=== PATIENT | female | born 1985 | race Caucasian/White ===

== ENCOUNTER 2016-12-17 06:10 | Inpatient (IN) | payer MEDICARE, OTHER ==
--- NOTE | ~2016-12-17 | A ---
[facility] Nutrition Therapy DATE: 12/17/16 Patient: COREY HENNESSY Physician: SEGUN Address: [address] Room/Bed: [address], Zip: [place] [address] Admit Date: 12/17/16 Date of : 86 Height: 5 4 Weight: 127 58 NUTRITIONAL ASSESSMENT: REASON: NPO IN ICU ASSESSMENT, PT INTUBATED PT IS 31 Y.O. FEMALE ADMITTED FOR RESPIRATORY FAILURE, ARDS, PNA PMH: NO PMH IN [facility]. PER CHART: IDDM Anthropometrics: 5'6" (IN CHART), WT: 153# (70 KG) (IN CHART), BMI: 24.7, 118%IBW -PER BEDSIDE WEIGHT: 128# (58 KG)-PER RD OBSERVATION, PT LOOKS "HEAVIER" THAN 128# Labs: GLU: 397, CA+:7.4, ALB: 2.3, A1c: 12.8 (IN CHART) (POOR DM MANAGEMENT) Meds: NACL, NOVOLOG, PROTONIX I/O & Bowel function: NOT AVAILABLE AT THIS TIME Skin Integrity: NO KNOWN SKIN ISSUES Estimated Nutrition Needs: 5408-4134 KCAL (25-30 KCAL/KG BW) 84-105 G PRO (1.2-1.5 G PRO/KG BW) FLUIDS CONSISTENT W/KCAL NEEDS Assessment: CHART REVIEWED AND EVENTS NOTED. PT SEEN FOR NPO IN ICU ASSESSMENT. PT CURRENTLY INTUBATED AT TIME OF VISIT. PT TRANSFERRED TO ICU THIS AM 12/17/16. PLANS IN PLACE FOR DHT PLACEMENT LATER TODAY. NO FAMILY IN ROOM AT TIME OF VISIT. PT NOT APPROPRIATE FOR DIET EDUCATION AT THIS TIME. RD TO FOLLOW. SEE RECOMMENDATIONS BELOW. Dx: INADEQUATE PROTEIN-ENERGY INTAKE R/T DX, CURRENT CONDITION AEB NPO STATUS, PT INTUBATED. Intervention: 1. NPO Monitoring, Evaluation and Goals: 1. ENTERAL NUTRITION; PROVIDE ~80-100% ESTIMATED NUTRIENT NEEDS W/NO SIGNS OF INTOLERANCE 2. PO INTAKE; ADVANCE DIET TOLERATED W/NO C/O N/V/D (PO>50%) 3. LABS; WNL: GLU MONITOR: -WEIGHTS -PLANS FOR SUPPORT -LABS [facility] Nutrition Therapy DATE: 12/17/16 Patient: COREY HENNESSY Physician: SEGUN Address: [facility] [address] Room/Bed: [address], Zip: [place] [address] Admit Date: 12/17/16 Date of : 86 Height: 5 4 Weight: 127 58 Recommendations: 1. ONCE MEDICALLY FEASIBLE AND PT EXTUBATED, ADVANCE DIET TO CC 2. IF PT REMAINS INTUBATED FOR >24 HOURS, RECOMMEND TO BEGIN ALTERNATIVE NUTRITION SUPPORT OF GLUCERNA 1.5 @ 20 ML/HR, ADVANCE 10 ML q 4 HOURS TO GOAL RATE OF 50 ML/HR -PROVIDES 1800 KCAL, 99 G PRO, 912 ML FREE H20 ADD FREE H20 FLUSHES PER MD 3. OPTIMIZE PT'S BLOOD SUGAR CONTROL REGIMEN RD WILL F/U PER PROTOCOL PT IS SEVERELY COMPROMISED Respectfully, NICHOLAS GTZ MS, RD, LD Food and Nutritional Services [facility] cc: client file
--- NOTE | ~2016-12-17 | CR72 ---
[facility] A Service of [facility] / [facility] RADIOLOGY TEXT RESULTS PATIENT: COREY HENNESSY LOCATION: [facility] : 86 UNIT #: [id number] AGE: [address]: Isis Brown MD SEX: F ORDER DR: [id number] [place], [place] [address] [id number] I MR#: [id number] Acc #: [id number] NAME: COREY HENNESSY : 1985 SEX: F STUDY DATE/TIME: 12/20/2016 16:10 UNIT: [facility] ROOM: [facility] STUDY DESCRIPTION: CR Chest Single View Portable Attending Physician: Isis Brown M.D. Ordering Physician: Chevy Arteaga M.D. Primary Care Physician: Primary Care Physician No MEDICAL IMAGING REPORT This report is preliminary unless electronic signature is present EXAM Portable chest HISTORY Right chest tube in place, evaluate pneumothorax. COMPARISON 12/20/2016 FINDINGS AP portable view of the chest demonstrates a large-bore chest tube directed towards the right lung apex. Low lung volumes with mild pulmonary vascular congestion but no definitive pneumothorax. Well demarcated right hemidiaphragm and right heart border does suggest the presence of some pleural air but a discrete pleural reflection is not seen. Small amount of subcutaneous emphysema right lateral thorax. Heart and mediastinum unremarkable. Right neck approach catheter extends probably to the level of the right atrium. Correlate for appropriate positioning, typically this should require pullback of the catheter of about 4 cm. No effusions. Dictated by... Warren Hinojosa M.D. THIS IS AN ELECTRONICALLY VERIFIED REPORT Warren Hinojosa M.D. at 12/21/2016 6:35 PM PAYAL/elise TD: 12/20/2016 21:23 JOB #: [id number] MEDICAL IMAGING REPORT [facility] A Service of [facility] / [facility] RADIOLOGY TEXT RESULTS PATIENT: COREY HENNESSY LOCATION: [facility] : 86 UNIT #: [id number] AGE: [address]: Isis Brown MD SEX: F ORDER DR: Page 1 of 1 COPY
--- NOTE | ~2016-12-17 | FU ---
[facility] Nutrition Therapy DATE: 12/20/16 Patient: COREY HENNESSY Physician: SEGUN Address: [address] Room/Bed: [address], Zip: [place] [address] Admit Date: 12/17/16 Date of : 86 Height: 5 4 Weight: 160 73 NUTRITION MONITORING/FOLLOW-UP: Reason: PT SEEN FOR FOLLOW-UP/ENTERAL NUTRITION SUPPORT DX: ARDS, RESP FAILURE, PNA Anthropometrics: 5'4", WT: 160# (73 KG), BMI: 27.5 Labs: GLU: 373, BUN: 33, ALB: 2.2 (12/18/16), NA+:147 Meds: LEVEMIR, SOLU-MEDROL, PHENERGAN, NOVOLOG, PROTONIX, NACL I&O's: 7685/8437, 1 BM NOTED Skin: NO KNOWN SKIN ISSUES Estimated Nutrition Needs: 3643-2074 KCAL 84-105 G PRO Assessment: CHART REVIEWED AND EVENTS NOTED. PT SEEN FOR ENTERAL NUTRITION SUPPORT FOLLOW-UP. PT EXTUBATED CURRENTLY ON NASAL CANNULA RECEIVING ENTERAL NUTRITION SUPPORT OF GLUCERNA 1.5 @ 50 ML/HR. PER RN AND CHART, PT TOLERATING EN. PER PUMP HISTORY, PT RECEIVING ~88% ESTIMATED NEEDS PAST [address] FOR SUPERVISOR BRAIDING EVAL TODAY. RD SPOKE TO PT. PT REPORTS NO C/O N/V/D. THIS RD ENCOURAGED SLOW GRADUAL PO INTAKE ONCE SUPERVISOR BRAIDING DEEMS PT APPROPRIATE FOR DIET ADVANCEMENT. PT REPORTED NO DIET QUESTIONS. RD TO FOLLOW. SEE RECOMMENDATIONS BELOW. -EN PROVIDES 1800 KCAL, 99 G PRO, 912 ML FREE H20 Dx: INADEQUATE PROTEIN-ENERGY INTAKE R/T DX, CURRENT CONDITION AEB NPO STATUS, PT INTUBATED.-RESOLVED INADEQUATE PROTEIN-ENERGY INTAKE R/T DX, CURRENT CONDITION AEB PT RECEIVING ALTERNATIVE NUTRITION SUPPORT, SUPERVISOR BRAIDING EVAL?. Intervention: 1. ENTERAL NUTRITION SUPPORT Monitoring, Evaluation and Goals: GOALS MET 1. ENTERAL NUTRITION; PROVIDE ~80-100% ESTIMATED NUTRIENT NEEDS 2. ORAL INTAKE; CONSUME DIET PER SUPERVISOR BRAIDING W/NO C/O N/V/D (PO>50%) 3. LABS; WNL: GLU, NA+, K+ 4. GI; PROMOTE REGULAR GI FUNCTION MONITOR: [facility] DATE: 12/20/16 Patient: COREY HENNESSY Physician: SEGUN Address: [address] Room/Bed: [address], Zip: [place] [address] Admit Date: 12/17/16 Date of : 86 Height: 5 4 Weight: 160 73 -TF RATE/RESIDUALS -WEIGHTS -SUPERVISOR BRAIDING EVAL? -LABS Recommendations: 1. CONTINUE CURRENT ENTERAL NUTRITION SUPPORT OF GLUCERNA 1.5 @ 50 ML/HR -ADEQUATE FOR PT'S CURRENT ESTIMATED NEEDS CONTINUE FREE H20 FLUSHES PER MD 2. ONCE MEDICALLY FEASIBLE, ADVANCE DIET PER SUPERVISOR BRAIDING + CC DIET -ENCOURAGE SLOW GRADUAL ORAL INTAKE ONCE DIET ADVANCES 3. ORDER GLUCERNA SHAKES BID IF PO INTAKE <50% 4. PLEASE OBTAIN UPDATED A1c TO BETTER ASSESS DM MANAGEMENT RD WILL F/U PER PROTOCOL PT IS MILD/MODERATELY COMPROMISED Respectfully, NICHOLAS GTZ MS, RD, LD Food and Nutritional Services [facility] cc: client file
--- NOTE | ~2016-12-17 | CR72 ---
[facility] A Service of [facility] & [facility] RADIOLOGY TEXT RESULTS PATIENT: COREY HENNESSY LOCATION: [address] : [birth year] UNIT #: [id number] AGE: [address]: Isis Brown MD SEX: F ORDER DR: [id number] [facility] [address] [facility]. [place], [place] [address] [id number] I MR#: [id number] Acc #: [id number] NAME: COREY HENNESSY : 1985 SEX: F STUDY DATE/TIME: 12/17/2016926 UNIT: [facility] ROOM: [facility] STUDY DESCRIPTION: CR Chest Single View Portable Attending Physician: Isis Brown M.D. Ordering Physician: Cielo Morrow M.D. Primary Care Physician: No Primary Care Physician MEDICAL IMAGING REPORT This report is preliminary unless electronic signature is present EXAM Chest, portable, 12/17/2016, 0927 hours. CLINICAL HISTORY 31-year-old woman with ARDS on ventilator with shortness of air. Dobbhoff tube placement today. COMPARISON None FINDINGS Portable upright chest demonstrates an endotracheal tube with tip 3.7 cm above the ernesto. Heart size is normal. There is diffuse airspace change throughout both lungs without pleural fluid or pneumothorax. No Dobbhoff tube is seen. IMPRESSION Endotracheal tube tip terminates 3.7 cm above the ernesto. There is diffuse bilateral airspace change. There is no adenopathy, pleural effusion, or pneumothorax. NOTE Dobbhoff tube is seen. Dictated by... Sudha Thibodeaux M.D. THIS IS AN ELECTRONICALLY VERIFIED REPORT Sudha Thibodeaux M.D. at 12/17/2016 2:28 PM SMM/toribiow [facility] A Service of [facility] & [facility] RADIOLOGY TEXT RESULTS PATIENT: COREY HENNESSY LOCATION: [address] : 86 UNIT #: [id number] AGE: [address]: Isis Brown MD SEX: F ORDER DR: TD: 12/17/2016 12:08 JOB #: [id number] MEDICAL IMAGING REPORT Page 1 of 1 COPY
--- NOTE | ~2016-12-17 | DS ---
Unit #: [id number] #: [id number] Patient: COREY HENNESSY [id number] [facility]. [place], [place] [address] [id number] I MR#: [id number] NAME: COREY HENNESSY ROOM: 227 Age: 31 Sex: F Admission Date: 12/17/2016 : 1985 Discharge Date: Attending Physician: Isis Brown M.D. Primary Care Physician: No Primary Care Physician DISCHARGE SUMMARY ADDENDUM The patient had an EGD by Dr. Hudson, which was completely normal examination up to the third part of . The patient was also assisted by long term care social worker for her wanting to move up here to be closer to family for more social support. The patient cannot move up here, as her grandmother cannot help her sell her estate at this time, and long term care social worker cannot help move her drug courts up here to [place]. Therefore, grandmother will be taking her back to [place], [place], and the patient will move up here on her own time. At this time, discharge condition is stable. Discharge to home where she can follow up with her primary care physician in 1-2 weeks with repeat chest x-ray. An outpatient physical therapy prescription was given, since the patient was hospitalized here for about a week, and she was intubated for 4 days during her stay here. The patient is up and ambulating the hallway. She tells me she has no trouble ambulating. Physical therapy has discharged her and felt that she was safe to be discharged home. Discharge medicines are the same as previous. NOTE: This dictation took 45 minutes, including coordinating care, patient education. Dictated by... Guadalupe Portillo PA-C for Shira Almeida/valeri TD: 12/25/2016 09:26 JOB #: [id number] DISCHARGE SUMMARY Page 1 of 1 X X DISCHARGE SUMMARY
--- NOTE | ~2016-12-17 | OR ---
Unit #: [id number] #: [id number] Patient: COREY HENNESSY [id number] [place], [place] [address] [id number] I MR#: [id number] NAME: COREY HENNESSY ROOM: [facility] Date of Procedure: 12/17/2016 Admission Date: 12/17/2016 Surgeon: Azeb Mcgovern M.D. : 1985 Attending Physician: Isis Brown M.D. PROCEDURE OPERATIVE NOTE PROCEDURE PERFORMED Right internal jugular central venous catheter placement. INDICATION Shock. PREPROCEDURE DIAGNOSIS Shock. POSTPROCEDURE DIAGNOSIS Shock. DESCRIPTION OF PROCEDURE Procedure was done as an emergent procedure. Patient was placed in appropriate position. The right side of the neck was prepped with ChloraPrep, and with all aseptic technique, a triple-lumen central venous catheter was placed in the right internal jugular vein. Patient tolerated the procedure very well. A postprocedure chest x-ray was ordered. Her line was secured with two interrupted sutures in place. The guidewire was removed in total. Dictated by... Shira Prakash TD: 12/18/2016 17:21 JOB #: [id number] PROCEDURE OPERATIVE NOTE Page 1 of 1 X Azeb Mcgovern MD X PROCEDURE OPERATIVE NOTE
--- NOTE | ~2016-12-17 | CR72 ---
[facility] A Service of [facility] / [facility] RADIOLOGY TEXT RESULTS PATIENT: COREY HENNESSY LOCATION: [id number] : 86 UNIT #: [id number] AGE: [address]: Isis Brown MD SEX: F ORDER DR: [id number] [facility] [address] [facility]. [place], [place] [address] [id number] I MR#: [id number] Acc #: [id number] NAME: COREY HENNESSY : 1985 SEX: F STUDY DATE/TIME: 12/19/2016 03:12 UNIT: [facility] ROOM: [facility] STUDY DESCRIPTION: CR Chest Single View Portable Attending Physician: Isis Brown M.D. Ordering Physician: Chevy Arteaga M.D. Primary Care Physician: No Primary Care Physician MEDICAL IMAGING REPORT This report is preliminary unless electronic signature is present EXAM Portable chest 12/19/2016 at 0312 hours INDICATION Respiratory failure. Ventilator patient. Pneumonia. FINDINGS AP portable chest is compared with 12/18/2016. Tubes and lines are unchanged and well-positioned. Heart size stable. Diffuse bilateral infiltrates persist, but they are improved suggesting improving edema. No pneumothorax. Dictated by... Gary Alegre Jr., M.D. THIS IS AN ELECTRONICALLY VERIFIED REPORT Gary Alegre Jr., M.D. at 12/19/2016 9:25 PM JOSE ALFREDO/bia TD: 12/19/2016 09:50 JOB #: [id number] MEDICAL IMAGING REPORT Page 1 of 1 COPY
--- NOTE | ~2016-12-17 | FU ---
[facility] Nutrition Therapy DATE: 12/24/16 Patient: COREY HENNESSY Physician: SEGUN Address: [address] Room/Bed: [address] [place] [address], Zip: [place] [address] Admit Date: 12/17/16 Date of : 86 Height: 5 4 Weight: 168 76.5 NUTRITION MONITORING/FOLLOW-UP: Reason: PT SEEN FOR FOLLOW-UP DX: ARDS Anthropometrics: 5'4", WT: 153# (PER PT) (70 KG), BMI: 26.3 -WEIGHTS HAVE RANGED ~127-168# SINCE ADMIT Labs: GLU: 311, BUN: 28 Meds: LEVEMIR, PREDNISONE, PROTONIX, PHENERGAN, NOVOLOG I&O's: 1190/1603, 3 BMs NOTED Skin: NO KNOWN SKIN ISSUES Estimated Nutrition Needs: 5868-7890 KCAL 84-105 G PRO Assessment: CHART REVIEWED AND EVENTS NOTED. PT SEEN FOR FOLLOW-UP. PT REPORTS APPETITE SLOWLY IMPROVING, NOTING N/V SLOWLY SUBSIDING BUT ADDS SHE FEELS NAUSEOUS OCCASIONALLY. PT REPORTED TOLERATING SOLID FOODY YESTERDAY. OF NOTE, PT CURRENTLY NPO 2' EGD PROCEDURE TODAY. PT WAS RECEIVING CC DIET PRIOR. THIS RD ENCOURAGED SLOW GRADUAL PO INTAKE + SUPPLEMENT (ONCE DIET ADVANCES), PT AGREED TO GLUCERNA SHAKES BID, RD WILL ORDER. RD ALSO PROVIDED WRITTEN AND VERBAL CC + GASTROPARESIS DIET EDUCATION. PT VERBALIZED UNDERSTANDING OF THE TOPIC, PT REPORTED NO DIET QUESTIONS AT THIS TIME. RD TO FOLLOW. SEE RECOMMENDATIONS BELOW. (OF NOTE, PER MD NOTES, ?GASTROPARESIS) Dx: INADEQUATE PROTEIN-ENERGY INTAKE R/T DX, CURRENT CONDITION, AEB NEED FOR ALTERNATIVE NUTRITION SUPPORT, ?MANAGER OF DIGITAL EVAL.-RESOLVED (PT NO LONGER ON EN). INADEQUATE PROTEIN-ENERGY INTAKE R/T DX, CURRENT CONDITION AEB PT REPORT ABOVE. Intervention: 1. NPO Monitoring, Evaluation and Goals: GOALS NOT MET 1. ORAL INTAKE; CONSUME >50% OF MEALS W/NO C/O N/V/D (PO>50%) 2. LABS; WNL 3. GI; PROMOTE REGULAR GI FUNCTION MONITOR: [facility] Nutrition Therapy DATE: 12/24/16 Patient: COREY HENNESSY Physician: SEGUN Address: [address] Room/Bed: [address] [place] [address], Zip: [place] [address] Admit Date: 12/17/16 Date of : 86 Height: 5 4 Weight: 168 76.5 -DIET ADVANCEMENT -PO INTAKE/APPETITE -SUPPLEMENT INTAKE -EDUCATION NEEDS Recommendations: 1. ONCE MEDICALLY FEASIBLE, ADVANCE DIET TO CC + 6 SMALL MEALS 2' PT CURRENT CONDITION 2. ORDER VANILLA GLUCERNA SHAKES BID ONCE DIET ADVANCES 3. APPRECIATE FAMILY AND STAFF TO ENCOURAGE ADEQUATE KCAL AN PROTEIN INTAKE 4. PLEASE OBTAIN A1c TO BETTER ASSESS DM MANAGEMENT RD WILL F/U PER PROTOCOL PT IS MILD/MODERATELY COMPROMISED Respectfully, NICHOLAS GTZ MS, RD, LD Food and Nutritional Services [facility] cc: client file
--- NOTE | ~2016-12-17 | CR72 ---
[facility] A Service of [facility] & [facility] RADIOLOGY TEXT RESULTS PATIENT: COREY HENNESSY LOCATION: [address] : 86 UNIT #: [id number] AGE: [address]: Isis Brown MD SEX: F ORDER DR: [id number] [facility] [address] [facility]. [place], [place] [address] [id number] I MR#: [id number] Acc #: [id number] NAME: COREY HENNESSY : 1985 SEX: F STUDY DATE/TIME: 11/17/2016 UNIT: [facility] ROOM: [facility] STUDY DESCRIPTION: CR Chest Single View Portable Attending Physician: Isis Brown M.D. Ordering Physician: Cielo Morrow M.D. Primary Care Physician: Primary Care Physician No MEDICAL IMAGING REPORT This report is preliminary unless electronic signature is present EXAM Portable chest 12/18 at 05:02 INDICATIONS Respiratory failure. Ventilator patient. FINDINGS AP portable chest compared with 12/17/2016. ET tube and right IJ line are in good position. Right chest tube in place. No pneumothorax on either side of the chest. Diffuse bilateral infiltrates are stable in the short interval. Dictated by... Gary Alegre Jr., M.D. THIS IS AN ELECTRONICALLY VERIFIED REPORT Gary Alegre Jr., M.D. at 12/18/2016 10:40 PM JOSE ALFREDO/astrid TD: 12/18/2016 07:23 JOB #: [id number] MEDICAL IMAGING REPORT Page 1 of 1 COPY
--- NOTE | ~2016-12-17 | CO ---
Unit #: [id number] #: [id number] Patient: COREY HENNESSY [id number] [place], [place] [address] [id number] I MR#: [id number] NAME: COREY HENNESSY ROOM: 227 Age: 31 Sex: F Admission Date: 12/17/2016 : 1985 Attending Physician: Isis Brown M.D. Consultation Date: 12/23/2016 CONSULTATION REPORT REASON FOR CONSULTATION Nausea, vomiting, and possible gastroparesis. HISTORY OF PRESENT ILLNESS Ms. Hennessy is 31-year-old white female lives at home by herself. She has type 1 diabetes from the age of 15 and says she is managing herself. The patient also smokes a pack of cigarette daily. She apparently came with acute respiratory failure and initially she was on the ventilator and has since then been extubated. She mentions repeated nausea and vomiting off and on. Initial diagnosis was community acquired pneumonia. She also mentions some upper abdominal discomfort. There was no history of any dysphagia or weight loss. PAST MEDICAL HISTORY She has no significant past medical history except for diabetes. History of hepatitis C and is about to see a doctor for starting treatment. PAST SURGICAL HISTORY No previous surgeries. ALLERGIES The patient has no known drug allergies. CURRENT MEDICATIONS Hospital available, but none from home. REVIEW OF SYSTEMS Detailed review of organ systems does not reveal any recent weight loss. No history of fever, chills, or rigors. No history of headache, seizures, chest pain, or syncope. No history of cough, expectoration, or hemoptysis. No history of dysuria, hematuria, or pyuria. No history of focal seizures or extremity weakness. Rest of the review of organ systems is unremarkable. PHYSICAL EXAMINATION GENERAL: She is awake, alert, oriented, and appears comfortable. VITAL SIGNS: Stable with a temperature of 98.4, pulse is 103 per minute and regular, respiratory rate is 18, blood pressure is 111/ 51. She weighs 168 pounds, which is close to her baseline weight. HEENT: She has mild pallor. There being no icterus, lymphadenopathy, or peripheral edema. CARDIOVASCULAR: Reveals normal heart sounds. No murmurs on auscultation. LUNGS: Reveal normal breath sounds. Good air entry. ABDOMEN: Soft and nontender. There being no area of localized rigidity, Unit #: [id number] #: [id number] Patient: GERHARD,COREY rebound, guarding, or tenderness. Liver and spleen are not palpable. Bowel sounds normal. DIAGNOSTIC STUDIES LABORATORY RESULTS: Shows a hemoglobin of 9.0 with normochromic normocytic red cell indices. White count is 11,000 with left shift. INR is 1.0. Serum chemistry shows a BUN and creatinine of 33 and 0.9. Albumin is 2.2. LFTs are otherwise normal. CLINICAL IMPRESSION The patient with type 1 diabetes, acute respiratory failure from community acquired pneumonia with intermittent nausea and vomiting. The latter may be related to uncontrolled diabetes or from gastroparesis. Diagnostic upper endoscopy to look for any intrinsic disease of gastric outflow tract is needed first. Any further recommendations will be made thereafter. The pros and cons of procedure, potential risks, and complications were discussed with the patient and she was reassured. Thank you very much for asking me to see this pleasant woman. I appreciate the consult. Dictated by... Shira Marie/lina TD: 12/24/2016 02:02 JOB #: [id number] CONSULTATION REPORT Page 1 of 1 X Choa Hudson MD X CONSULTATION REPORT
--- NOTE | ~2016-12-17 | HP ---
Unit #: [id number] #: [id number] Patient: COREY HENNESSY [id number] [address] [facility]. [place], [place] [address] [id number] I MR#: [id number] NAME: COREY HENNESSY [facility]OM: [facility] Age: 31 Sex: F Admission Date: 12/17/2016 : 1985 Attending Physician: Isis Brown M.D. Primary Care Physician: No Primary Care Physician HISTORY AND PHYSICAL REASON FOR ADMISSION Acute respiratory failure. HISTORY OF PRESENT ILLNESS The patient is a 31-year-old female to whom we do not have any verified records from [facility]. We are awaiting them at the time of this dictation. After review and discussion with my associate and through the night, the patient was actually accepted as a transfer from [facility] secondary to acute respiratory failure. Apparently, she had been initially admitted secondary to vomiting, coughing, as well as, noted to have blood present in her sputum. She apparently was diagnosed with community-acquired pneumonia. Her O2 saturation started to decrease, was placed on a ventilator, and was noted to have "complete white out" of her lungs and was thus transferred to [facility] for further evaluation and worsening respiratory status. PAST MEDICAL HISTORY Unknown. PAST SURGICAL HISTORY Not known. HOME MEDICATIONS Not known. ALLERGIES Not known. REVIEW OF SYSTEMS Limited secondary to patient currently being on ventilator. PHYSICAL EXAMINATION VITAL SIGNS: Current vitals: Temperature 98.4, pulse 111, respiratory rate 16, blood pressure 105/64. GENERAL APPEARANCE: The patient is a 31 year old, currently on vent support, no acute distress, sedated. HEENT: Head: Atraumatic. Ears: Tympanic membranes do not reveal erythema or injection. NECK: Supple. CARDIOVASCULAR: S1, S2 without murmur. RESPIRATORY: Diminished. GASTROINTESTINAL/ABDOMEN: Nontender, nondistended. SKIN: Reveals numerous tattoos present upper and lower extremities. Numerous bruises are noted over hands and feet. Unit #: [id number] #: [id number] Patient: COREY HENNESSY EXTREMITIES: Lower extremities: No lower extremity edema is noted. DIAGNOSTIC STUDIES LABORATORY: Labs at outside facility were reviewed. Flu swab is negative. Creatinine 0.7 on December 17, 2016 noted at 0055. White count 8.2 on December 14, 2016. Hemoglobin 13.7 on December 14, 2016. Hemoglobin A1c 12.3% drawn at outside facility. Urine culture does not reveal any bacterial growth from outside facility. INITIAL ADMISSION DIAGNOSES 1. Acute respiratory failure. 2. Acute respiratory distress syndrome. 3. Diabetes, poorly controlled. 4. Upper and lower extremity bruising, questionable etiology. PLAN 1. Admission intensive care unit placement. 2. Etl Analyst Developer consult. 3. Laboratory studies: Check HIV, urine tox, hepatitis panel. 4. Further hospital course to follow. 5. Patient has no current family members present at bedside. Will await family members as well as prior records from outside facility for planning further disposition. Dictated by Shira Almeida/clari TD: 12/17/2016 11:05 JOB #: [id number] HISTORY AND PHYSICAL Page 1 of 1 X Isis Brown MD X HISTORY AND PHYSICAL
--- NOTE | ~2016-12-17 | CR72 ---
[facility] A Service of [facility] & [facility] RADIOLOGY TEXT RESULTS PATIENT: COREY HENNESSY LOCATION: [address] : [birth year] UNIT #: [id number] AGE: [address]: Isis Brown MD SEX: F ORDER DR: [id number] [facility] [address] [facility]. [place], [place] [address] [id number] I MR#: [id number] Acc #: [id number] NAME: COREY HENNESSY : 1985 SEX: F STUDY DATE/TIME: 12/17/2016 18:24 UNIT: [facility] ROOM: [facility] STUDY DESCRIPTION: CR Chest Single View Portable Attending Physician: Isis Brown M.D. Ordering Physician: Azeb Mcgovern M.D. Primary Care Physician: Primary Care Physician No MEDICAL IMAGING REPORT This report is preliminary unless electronic signature is present EXAM Portable chest. HISTORY Chest tube placement. COMPARISON Portable chest 12/17/2016 at 1202 hours. FINDINGS Portable view of the chest demonstrates a single right-sided chest tube directed towards the right lung apex. No significant pleural air identified. No visible pneumothorax. Flexible feeding tube, appears in satisfactory position. There is a right neck approach central line probably extending into the right atrium. Continued diffuse alveolar infiltrates most likely representing diffuse pulmonary edema, probably noncardiogenic as the heart size is within normal limits. Diffuse pneumonia considered less likely. Dictated by... Warren Hinojosa M.D. THIS IS AN ELECTRONICALLY VERIFIED REPORT Warren Hinojosa M.D. at 12/18/2016 10:59 PM PAYAL/max TD: 12/17/2016 23:26 JOB #: [id number] MEDICAL IMAGING REPORT Page 1 of 1 COPY
--- NOTE | ~2016-12-17 | CR72 ---
[facility] A Service of [facility] RADIOLOGY TEXT RESULTS PATIENT: COREY HENNESSY LOCATION: [address] : [birth year] UNIT #: [id number] AGE: [address]: Isis Brown MD SEX: F ORDER DR: [id number] [facility] [address] [place], [place] [address] [id number] I MR#: [id number] Acc #: [id number] NAME: COREY HENNESSY : 1985 SEX: F STUDY DATE/TIME: 12/17/2016 10:53 UNIT: [facility] ROOM: [facility] STUDY DESCRIPTION: CR Chest Single View Portable Attending Physician: Isis Brown M.D. Ordering Physician: Azeb Mcgovern M.D. Primary Care Physician: Primary Care Physician No MEDICAL IMAGING REPORT This report is preliminary unless electronic signature is present EXAM Portable chest INDICATIONS Central line placement followup infiltrates, 12/17 COMPARISON: Earlier the same day. FINDINGS This portable view of the chest shows a new right side central venous catheter with its tip in the right atrium. There is a new right-sided pneumothorax that is at least 15%. I have already discussed this with the patient's nurse and she was aware of the findings. There are dense bilateral infiltrates that are stable. There is partial collapse of the right upper lobe. The enteric tube has its tip at least in the stomach. I believe the endotracheal tube is still present with its tip above the ernesto. Dictated by... Dillan Walters M.D. THIS IS AN ELECTRONICALLY VERIFIED REPORT Dillan Walters M.D. at 12/17/2016 4:10 PM GURDEEP/astrid TD: 12/17/2016 11:51 JOB #: [id number] MEDICAL IMAGING REPORT Page 1 of 1 COPY
--- NOTE | ~2016-12-17 | CR72 ---
[facility] A Service of [facility] & [facility] RADIOLOGY TEXT RESULTS PATIENT: COREY HENNESSY LOCATION: [address] : [birth year] UNIT #: [id number] AGE: [address]: Isis Brown MD SEX: F ORDER DR: [id number] [facility] [address] [facility] [place] [facility]. [place], [place] [address] [id number] I MR#: [id number] Acc #: [id number] NAME: COREY HENNESSY : 1985 SEX: F STUDY DATE/TIME: 12/20/2016 5:46 UNIT: [facility] ROOM: [facility] STUDY DESCRIPTION: CR Chest Single View Portable Attending Physician: Isis Brown M.D. Ordering Physician: Chevy Arteaga M.D. Primary Care Physician: Primary Care Physician No MEDICAL IMAGING REPORT This report is preliminary unless electronic signature is present EXAM AP portable chest 12/20/2016 HISTORY Respiratory failure. Chest tube. Follow up cardiopulmonary status. TECHNIQUE AP portable chest x-ray. FINDINGS The examination shows no change since yesterday following interval extubation. Right chest tube remains in place, and there is no visible pneumothorax. Right IJ central line and feeding tube remain in good position. Mildly increased interstitial markings throughout both lungs, stable. No airspace consolidation or visible pleural effusion. IMPRESSION Stable chest x-ray following extubation since yesterday. Remaining support devices in good position. Dictated by... Farooq Hillman M.D. THIS IS AN ELECTRONICALLY VERIFIED REPORT Farooq Hillman M.D. at 12/20/2016 1:32 PM OSORIOW/kevin TD: 12/20/2016 07:18 JOB #: [id number] MEDICAL IMAGING REPORT [facility] A Service of [facility] / [facility] RADIOLOGY TEXT RESULTS PATIENT: COREY HENNESSY LOCATION: [address] : [birth year] UNIT #: [id number] AGE: [address]: Isis Brown MD SEX: F ORDER DR: Page 1 of 1 COPY
--- NOTE | ~2016-12-17 | OR ---
Unit #: [id number] #: [id number] Patient: COREY HENNESSY [id number] [address] [address] [id number] I MR#: [id number] NAME: COREY HENNESSY ROOM: [facility] Date of Procedure: 12/17/2016 Admission Date: 12/17/2016 Surgeon: Azeb Mcgovern M.D. : 1985 Attending Physician: Isis Brown M.D. PROCEDURE OPERATIVE NOTE PROCEDURE PERFORMED Right-sided chest tube placement. INDICATION Pneumothorax. PREPROCEDURE DIAGNOSIS Pneumothorax. POSTPROCEDURE DIAGNOSIS Pneumothorax. DESCRIPTION OF PROCEDURE After placing patient in the proper position, the right side of the chest was prepped with ChloraPrep, and with all aseptic technique, a 4 cm incision was made in the right fifth intercostal space. With blunt dissection, the right side pleural space was entered, and a gush of air came out. We inserted a #20-Divehi chest tube with a trocar. The chest tube was secured with one suture and a sterile dressing was applied. Patient tolerated the procedure very well. No complications happened. A postprocedure chest x-ray was ordered. Dictated by... Shira Prakash TD: 12/18/2016 17:29 JOB #: [id number] PROCEDURE OPERATIVE NOTE Page 1 of 1 X Azeb Mcgovern MD X PROCEDURE OPERATIVE NOTE
--- NOTE | ~2016-12-17 | CR7 ---
[facility] A Service of [facility] RADIOLOGY TEXT RESULTS PATIENT: COREY HENNESSY LOCATION: [address] [address] : [birth year] UNIT #: [id number] AGE: [address]: Isis Brown MD SEX: F ORDER DR: [id number] [facility] [address] [facility]. [place], [place] [address] [id number] I MR#: [id number] Acc #: [id number] NAME: COREY HENNESSY : 1985 SEX: F STUDY DATE/TIME: 12/17/2016 0935 UNIT: [facility] ROOM: [facility] STUDY DESCRIPTION: CR Abdomen Single AP View Attending Physician: Isis Brown M.D. Ordering Physician: Cielo Morrow M.D. Primary Care Physician: No Primary Care Physician MEDICAL IMAGING REPORT This report is preliminary unless electronic signature is present EXAM Abdomen one-view, 12/17/2016, 0935 hours. CLINICAL HISTORY ARDS on ventilator with shortness of air, Dobbhoff tube placement today. Abdominal pain today. COMPARISON Chest film 12/17/2016. No prior abdominal film. FINDINGS Single supine view of the abdomen demonstrates a Dobbhoff tube with tip directed rightward and cephalad to the right of the L1-2 disc space level, likely at or near the pylorus. Bowel gas pattern is unremarkable. IMPRESSION The Dobbhoff tube tip projects to the right of the L1-L2 disc space level with tip directed rightward and cephalad, most likely at or near the pylorus. Dictated by... Sudha Thibodeaux M.D. THIS IS AN ELECTRONICALLY VERIFIED REPORT Sudha Thibodeaux M.D. at 12/18/2016 10:40 AM PAUL/leslye TD: 12/17/2016 16:06 JOB #: [id number] MEDICAL IMAGING REPORT [facility] A Service of [facility] RADIOLOGY TEXT RESULTS PATIENT: COREY HENNESSY LOCATION: [address] [place] [address] : [birth year] UNIT #: [id number] AGE: [address]: Isis Brown MD SEX: F ORDER DR: Page 1 of 1 COPY
--- NOTE | ~2016-12-17 | DS ---
Unit #: [id number] #: [id number] Patient: COREY HENNESSY [id number] [address] [place], [place] [address] [id number] I MR#: [id number] NAME: COREY HENNESSY ROOM: 227 Age: 31 Sex: F Admission Date: 12/17/2016 : 1985 Discharge Date: 12/24/2016 Attending Physician: Isis Brown M.D. Primary Care Physician: No Primary Care Physician DISCHARGE SUMMARY DISCHARGE DIAGNOSES 1. Acute hypoxic respiratory failure. She presented to us intubated and sedated. 2. Acute respiratory distress syndrome due to pneumonia. 3. Septic shock, present on admission due to pneumonia. 4. Bilateral pneumonia, treating for gram-negative rods with concern in patient who was ventilated. 5. Uncontrolled type 2 diabetes. 6. Nausea, vomiting. Gastrointestinal for esophagogastroduodenoscopy. 7. History of hepatitis C. 8. History of polysubstance abuse. 9. Social disruption. 10. History of anxiety and depression. CONSULTANTS 1. Dr. Mcgovern and Dr. Mary Alice Arteaga of pulmonary. 2. Dr. Hudson of gastroenterology. 3. Dr. Messina of psychiatry. PROCEDURES The patient had a chest tube placed by Dr. Mcgovern on 12/17/16. DIAGNOSTIC STUDIES IMAGING: The patient had initial chest x-ray on admission, 12/17/16, after Dobbhoff was placed. She was intubated, and the Dobbhoff tube was seen. The patient had daily chest x-rays, December 18, December 19, December 20 while she was intubated, and a final chest x-ray on December 22 with impression of removal of right-sided chest tube. No visible pneumothorax. Low lung volumes with mild bilateral interstitial opacities unchanged. The patient did have bilateral lower extremity Doppler. No evidence of either right or left lower extremity DVT or superficial venous thrombosis. LABS ON DAY OF DISCHARGE: BMP - glucose 311, BUN 28, creatinine 0.8, sodium 138, potassium 3.7, chloride 106, CO2 24, calcium 8.5, phosphorous 2.7, magnesium 2, total protein 5.4, albumin 2.2, total bilirubin 0.9, AST 25, ALT 18, alkaline phosphatase 52. The patient's hemoglobin A1C is still pending. CBC with WBC of 12.3, RBC 3.13, hemoglobin 9.2, hematocrit 27.1, MCV 86.8, MCH 29.6, MCHC 34.1, RDW 13.4, platelets 288, MPV 8.2. MICROBIOLOGY: The patient's blood culture had no growth. Sputum had 1+ yeast species but no growth of normal nela. Unit #: [id number] #: [id number] Patient: [facility] The patient is a 31-year-old female with history of IV drug use, type 1 diabetes and generalized anxiety and depression who was transferred from [facility] for persistent respiratory distress with no improvement and aspiration pneumonia. She was hospitalized at that facility for 4 days. Due to her persistent respiratory distress requiring persistent intubation and ventilation, she was transferred to [facility] for higher level of care. Upon arrival here, she was seen in consultation with Dr. Balderas pulmonary for her acute hypoxic respiratory failure with acute respiratory distress syndrome, as well as bilateral pneumonia. She was treated with IV steroids, continued with IV antibiotics. After a chest x-ray and acute abdominal series were obtained upon arrival, it was seen that the patient had a pneumothorax and a right-sided chest tube was needed. This was performed by Dr. Mcgovern of pulmonary. As the patient was continuing to get Solu-Medrol for her acute respiratory distress, as well as IV antibiotics for her pneumonia, her symptoms started to improve. She was extubated on the after 4 days of hospitalization here. She has done well after being extubated. For her pneumothorax, it was treated with a chest tube placed by pulmonary, and eventually it was taken out. The latest chest x-ray on December 22 showed resolution of the pneumothorax. At this time the patient is on room air and is oxygenating well, but she complains of nausea and vomiting. She does have type 1 diabetes and is uncontrolled. Therefore, Dr. Hudson of gastroenterology was consulted, and he is planning to do an EGD to rule out any outlet obstruction cause. The patient is from [place], [place], 2 [place]2 hours away. She has no social support there and tells me that both her parents and daughter have about 1-2 years ago. She has a home there but has no social support. She does have her grandmother here in [place], as well as some aunts here in [place]. She is wishing to be transferred up here. dietary worker is assisting the patient with any social needs. For her history of drug usage, as well as anxiety and depression, Dr. Messina was consulted, and we will wait for any recommendations by Dr. Messina. At this time the patient is stable. If she is felt by gastroenterology to have no further concern, she may be discharged home with her grandmother here in [place]. Prescriptions for home management of insulin, as well as Celexa, will be given to the patient. dietary worker will follow up her for any other needs. DISCHARGE CONDITION/DISPOSITION (1) to home. ACTIVITIES No restrictions with ambulating every day as tolerated. DISCHARGE MEDICINES 1. Celexa 20 mg orally daily. 2. Levemir 18 units subcutaneously b.i.d. 3. NovoLog low dose sliding scale insulin prior to meals and at bedtime. 4. Levaquin 750 mg orally for the next 5 days. Unit #: [id number] #: [id number] Patient: COREY HENNESSY Dictated by... Guadalupe Portillo PA-C for Shira Almeida/valeri TD: 12/25/2016 08:53 JOB #: [id number] DISCHARGE SUMMARY Page 1 of 1 X X DISCHARGE SUMMARY
--- NOTE | ~2016-12-17 | OR ---
Unit #: [id number] #: [id number] Patient: COREY HENNESSY [id number] [address] [place], [place] [address] [id number] I MR#: [id number] NAME: COREY HENNESSY ROOM: 227 Date of Procedure: 12/24/2016 Admission Date: 12/17/2016 Surgeon: Chao Hudson M.D. : 1985 Attending Physician: Isis Brown M.D. OPERATIVE REPORT ADDITIONAL ATTENDING PHYSICIAN Cielo Morrow M.D. PREOPERATIVE DIAGNOSES Nausea, vomiting, and possible gastroparesis. PROCEDURE PERFORMED Upper gastrointestinal endoscopy. POSTOPERATIVE DIAGNOSIS Completely normal examination up to third part of duodenum. RECOMMENDATIONS The patient will be discharged home from GI standpoint and will require followup on an outpatient basis. SEDATION USED MAC. DESCRIPTION OF PROCEDURE Following detailed explanation of potential risks and complications of an upper endoscopy, namely perforation, bleeding, and complication related to sedation, the patient was brought to GI lab and laid in the left lateral decubitus position. Lubricated tip of the Olympus video upper endoscope was passed through the bite block into the proximal esophagus under direct vision. The entire esophageal mucosa was examined and appeared normal. Z-line was nicely demarcated, there being no esophagitis or hiatus hernia. The scope was then advanced into the gastric cavity and the latter was insufflated. Mucosa of the fundus, body, and antrum was examined and appeared unremarkable. Pylorus was intubated with visualization of the normal duodenal bulb and second and third part of the duodenum. Upon withdrawal and retroflexion, incisura, cardia, and greater curve was examined and no additional findings were noted. The scope was then withdrawn in the distal esophagus. The entire esophageal mucosa was examined all the way up to pharynx and no additional findings were noted. The patient tolerated the procedure without any postprocedure complications. Dictated by... Chao Hudson M.D. Unit #: [id number] #: [id number] Patient: COREY HENNESSY CARISSA/lina TD: 12/24/2016 22:34 JOB #: [id number] OPERATIVE REPORT Page 1 of 1 X Chao Hudson MD OPERATIVE NOTE
--- NOTE | ~2016-12-17 | CR72 ---
[facility] A Service of [facility] & [facility] RADIOLOGY TEXT RESULTS PATIENT: COREY HENNESSY LOCATION: [place] [address] : [birth year] UNIT #: [id number] AGE: [address]: Isis Brown MD SEX: F ORDER DR: [id number] [facility] [address] [place], [place] [address] [id number] I MR#: [id number] Acc #: [id number] NAME: COREY HENNESSY : 1985 SEX: F STUDY DATE/TIME: 12/17/2016 12:02 UNIT: [facility] ROOM: [facility] STUDY DESCRIPTION: CR Chest Single View Portable Attending Physician: Isis Brown M.D. Ordering Physician: Azeb Mcgovern M.D. Primary Care Physician: No Primary Care Physician MEDICAL IMAGING REPORT This report is preliminary unless electronic signature is present EXAM Portable chest HISTORY Chest tube placement. FINDINGS This portable view of the chest is compared with one from 1.5 hours ago. The right chest tube has been added and the pneumothorax has resolved. Dense bilateral infiltrates are stable. Dictated by... Dillan Walters M.D. THIS IS AN ELECTRONICALLY VERIFIED REPORT Dillan Walters M.D. at 12/17/2016 4:10 PM GURDEEP/bia TD: 12/17/2016 14:20 JOB #: [id number] MEDICAL IMAGING REPORT Page 1 of 1 COPY
--- NOTE | ~2016-12-17 | US84 ---
[id number] [facility] [address] [place], [place] [address] [id number] I MR#: [id number] Acc #: [id number] NAME: COREY HENNESSY : 1985 SEX: F STUDY DATE/TIME: 12/18/2016 9:50 UNIT: [facility] ROOM: [facility] STUDY DESCRIPTION: US LE Veins Complete Nando Stdy Attending Physician: Isis Brown M.D. Ordering Physician: Isis Brown M.D. MEDICAL IMAGING REPORT This report is preliminary unless electronic signature is present EXAM Bilateral lower extremities venous Doppler HISTORY Shortness of air, patient on a ventilator. FINDINGS The right common femoral vein, femoral vein, popliteal vein, tibial veins demonstrate patency and compressibility. There is phasic and spontaneous flow with respiration and augmentation. Proximal and distal greater saphenous vein is patent and compressible. The left common femoral vein, femoral vein, popliteal vein, tibial veins demonstrate patency and compressibility. There is phasic and spontaneous flow with respiration and augmentation. Proximal and distal greater saphenous vein is patent and compressible. IMPRESSION No evidence of either right or left lower extremity deep or superficial venous thrombosis. Dictated by... Radha Hammer M.D. THIS IS AN ELECTRONICALLY VERIFIED REPORT Radha Hammer M.D. at 12/19/2016 3:49 PM FPN/pcl TD: 12/18/2016 16:02 JOB #: [id number] MEDICAL IMAGING REPORT Page 1 of 1 COPY
--- NOTE | ~2016-12-17 | CR63 ---
[facility] A Service of [facility] RADIOLOGY TEXT RESULTS PATIENT: COREY HENNESSY LOCATION: [facility] : [birth year] UNIT #: [id number] AGE: [address]: Isis Brown MD SEX: F ORDER DR: [id number] [facility] [address] [place], [place] [address] [id number] I MR#: [id number] Acc #: [id number] NAME: COREY HENNESSY : 1985 SEX: F STUDY DATE/TIME: 12/22/2016 12:59 UNIT: [facility] ROOM: [facility] STUDY DESCRIPTION: CR Chest 2 View Attending Physician: Isis Brown M.D. Ordering Physician: Isis Brown M.D. Primary Care Physician: No Primary Care Physician MEDICAL IMAGING REPORT This report is preliminary unless electronic signature is present EXAM Two-view chest, 12/22/2016 HISTORY A 31-year-old female with shortness of breath since 12/21/2016. Chest tube removal 12/21/2016. COMPARISON STUDIES 12/20/2016. FINDINGS Two views of the chest demonstrate interval removal of the right-sided chest tube. No visible pneumothorax. Low lung volumes with mild bilateral interstitial opacities are unchanged. Right IJ central venous catheter is again noted with tip projecting over the right atrium. Heart size and mediastinum are stable. IMPRESSION 1. Removal of right-sided chest tube. No visible pneumothorax. 2. Low lung volumes with mild bilateral interstitial opacities are unchanged. Dictated by... Alfonso Patrick M.D. THIS IS AN ELECTRONICALLY VERIFIED REPORT Alfonso Patrick M.D. at 12/23/2016 10:56 AM JEREMIAH/madeleine TD: 12/23/2016 09:20 JOB #: [id number] [facility] A Service of [facility] RADIOLOGY TEXT RESULTS PATIENT: COREY HENNESSY LOCATION: [facility] : [birth year] UNIT #: [id number] AGE: [address]: Isis Brown MD SEX: F ORDER DR: MEDICAL IMAGING REPORT Page 1 of 1 COPY
--- NOTE | ~2016-12-17 | CO ---
Unit #: [id number] #: [id number] Patient: COREY HENNESSY [id number] [address] [place], [place] [address] [id number] MR#: [id number] NAME: COREY HENNESSY ROOM: [facility] Age: 31 Sex: F Admission Date: 12/17/2016 : 1985 Attending Physician: Isis Brown M.D. Consultation Date: 12/17/2016 CONSULTATION REPORT REASON FOR CONSULTATION Respiratory failure. CHIEF COMPLAINT Shortness of breath. HISTORY OF PRESENT ILLNESS A 31-year-old female presented to an outside hospital about four days ago with a complaint of shortness of breath and was admitted with the impression of pneumonia, ARDS, and progressive respiratory failure. Patient did not improve. She was on 20 of PEEP and was in progressive respiratory failure. She was being treated with IV antibiotics and has been transferred for further care. I am seeing the patient at the bedside. She is currently sedated and intubated and is paralyzed. REVIEW OF SYSTEMS Unobtainable. FAMILY HISTORY Unobtainable. SOCIAL HISTORY Listed as positive for smoking. MEDICATIONS As per MAR and have been reviewed. ALLERGIES Reviewed. PHYSICAL EXAMINATION VITAL SIGNS: Currently, temperature is 99, pulse 110, respirations 20, and blood pressure is 86/50. NEUROLOGICAL: Sedated and intubated. CARDIOVASCULAR: S1 plus S2. RESPIRATORY: Bilateral air entry, bilateral mild rhonchi. GASTROINTESTINAL: Nontender and soft. Bowel sounds positive. EXTREMITIES: No edema. DIAGNOSTIC STUDIES LABORATORY: Pending. IMAGING: Pending. Chest x-ray showed bilateral infiltrates. Unit #: [id number] #: [id number] Patient: COREY HENNESSY ASSESSMENT 1. Acute hypoxic respiratory failure. 2. Severe acute respiratory distress syndrome. 3. Bilateral pneumonia. 4. History of chronic pain. 5. Shock. PLAN At this point, my plan is to continue ventilator support. Start patient on stress-dose steroids. Continue broad spectrum IV antibiotic, GI and DVT prophylaxis, 2D echo, troponin, and repeat blood gas. Will need CT chest and will need bronchoscopy once on minimal ventilator settings. Patient will be closely monitored. Please see orders for detailed plans. Thank you very much for this consultation. We will continue to monitor. Patient's prognosis is very poor. Dictated by... Shira Prakash TD: 12/18/2016 17:11 JOB #: [id number] CONSULTATION REPORT Page 1 of 1 X Azeb Mcgovern MD CONSULTATION REPORT
[2016-12-17 09:50] LABS: INFLUENZA A NEG (NEG); INFLUENZA B NEG (NEG)
[2016-12-17 09:53] LABS: HEMOGLOBIN 10.9 gm/dL (12.0-16.0); MEAN CELL VOLUME 89.7 FL (83-96); MEAN CORPUSCULAR HEMOGLOBIN 29.6 PG (28-34); MEAN PLATELET VOLUME 9.2 FL (6.5-11.5); RED BLOOD COUNT 3.68 X10e (3.90-5.30); RED CELL DISTRIBUTION WIDTH 14.2 % (11.0-15.5); WHITE BLOOD COUNT 20.4 X10e3 (4.0-10.5)
[2016-12-17 09:54] LABS: ARTERIAL BLD GAS O2 SATURATION 98.3 % (90.0-100.0); ARTERIAL BLOOD GAS ART SITE LEFT RADIAL; ARTERIAL BLOOD GAS CARBOXY HB 0.5 %sat (0.0-9.0); ARTERIAL BLOOD GAS DELIVERY VENT; ARTERIAL BLOOD GAS HCO3 21.4 mmol/L; ARTERIAL BLOOD GAS MET HB 0.9 %sat (0.0-2.0); ARTERIAL BLOOD GAS PCO2 52.1 mmHg (35.0-45.0); ARTERIAL BLOOD GAS VENT MODE AC; ARTERIAL BLOOD GAS pH 7.223 (7.350-7.450); ARTERIAL DRAW? YES
[2016-12-17 10:11] LABS: ALBUMIN SERUM 2.3 g/dL (3.5-5.0); BILIRUBIN,TOTAL 0.8 mg/dL (0.2-2.0); CALCIUM SERUM 7.4 mg/dL (8.4-10.2); GLOM FILT RATE Estimated 75.6 mL/min (>60); PROTEIN TOTAL SERUM 5.5 g/dL (6.0-8.3)
[2016-12-17 10:57] LABS: ARTERIAL BLOOD GAS MET HB 0.8 %sat (0.0-2.0); ARTERIAL BLOOD GAS PCO2 43.8 mmHg (35.0-45.0); ARTERIAL BLOOD GAS pH 7.289 (7.350-7.450)
[2016-12-17 10:58] LABS: ARTERIAL BLOOD GAS ART SITE LEFT RADIAL; ARTERIAL BLOOD GAS DELIVERY VENT; ARTERIAL BLOOD GAS PO2 66.9 mmHg (80.0-100); ARTERIAL BLOOD GAS VENT MODE AC; ARTERIAL DRAW? YES
[2016-12-17 12:21] LABS: AMPHETAMINE NEG (NEG); BARBITURATES NEG (NEG); BENZODIAZEPINES POS (NEG); COCAINE NEG (NEG); MARIJUANA NEG (NEG); OPIATES POS (NEG); TRICYCLIC ANTIDEPRESSANTS NEG (NEG); U METHADONE NEG (NEG)
[2016-12-18 03:09] LABS: BASOPHIL% 0.1 % (0-2.5); EOSINOPHIL% 0.1 % (0.0-7.0); HEMATOCRIT 27.8 % (35.0-45.0); HEMOGLOBIN 9.3 gm/dL (12.0-16.0); LYMPHOCYTE# 1.2 X10e3 (1.0-3.5); LYMPHOCYTE% 9.1 % (17.0-45.0); MEAN CELL VOLUME 88.7 FL (83-96); MEAN CORPUSCULAR HEMOGLOBIN 29.7 PG (28-34); MEAN CORPUSCULAR HGB CONC 33.5 g/dL (30-36); MEAN PLATELET VOLUME 8.6 FL (6.5-11.5); MONOCYTE# 0.9 X10e3 (0-1.0); MONOCYTE% 6.8 % (3.0-12.0); NEUTROPHIL# 11.3 X10e3 (1.5-7.1); NEUTROPHIL% 83.9 % (40-75); PLATELET COUNT 166 X10e3 (140-420); RED BLOOD COUNT 3.14 X10e (3.90-5.30); RED CELL DISTRIBUTION WIDTH 13.7 % (11.0-15.5); WHITE BLOOD COUNT 13.5 X10e3 (4.0-10.5)
[2016-12-18 03:15] LABS: DIFF IND NO
[2016-12-18 03:23] LABS: PARTIAL THROMBOPLASTIN TIME 33.8 SECONDS (23.5-31.3); PROTHROMBIN TIME (PATIENT) 10.2 SECONDS (9.6-11.5)
[2016-12-18 03:40] LABS: ALBUMIN SERUM 2.2 g/dL (3.5-5.0); BILIRUBIN,TOTAL 0.9 mg/dL (0.2-2.0); BUN/CREATININE RATIO 24.28; CALCIUM SERUM 7.4 mg/dL (8.4-10.2); CREATININE SERUM 0.7 mg/dL (0.6-1.4); GLOM FILT RATE Estimated 116.3 mL/min (>60); PROTEIN TOTAL SERUM 5.4 g/dL (6.0-8.3)
[2016-12-18 03:41] LABS: POTASSIUM 3.3 mmol/L (3.5-5.1)
[2016-12-18 05:20] LABS: ARTERIAL BLD GAS O2 SATURATION 92.5 % (90.0-100.0); ARTERIAL BLOOD GAS ALLEN TEST NORMAL; ARTERIAL BLOOD GAS HCO3 22.8 mmol/L; ARTERIAL BLOOD GAS MET HB 0.7 %sat (0.0-2.0); ARTERIAL BLOOD GAS PCO2 35.5 mmHg (35.0-45.0); ARTERIAL BLOOD GAS PO2 65.2 mmHg (80.0-100); ARTERIAL BLOOD GAS pH 7.417 (7.350-7.450); ARTERIAL DRAW? YES
[2016-12-18 05:21] LABS: ARTERIAL BLOOD GAS ART SITE LEFT BRACHIAL; ARTERIAL BLOOD GAS VENT MODE AC
[2016-12-18 17:54] LABS: BUN/CREATININE RATIO 27.14; CREATININE SERUM 0.7 mg/dL (0.6-1.4); GLOM FILT RATE Estimated 116.3 mL/min (>60); POTASSIUM 3.8 mmol/L (3.5-5.1)
[2016-12-19 05:29] LABS: ARTERIAL BLD GAS O2 SATURATION 98.2 % (90.0-100.0); ARTERIAL BLOOD GAS CARBOXY HB 0.9 %sat (0.0-9.0); ARTERIAL BLOOD GAS HCO3 26.8 mmol/L; ARTERIAL BLOOD GAS MET HB 1.1 %sat (0.0-2.0); ARTERIAL BLOOD GAS PCO2 32.7 mmHg (35.0-45.0); ARTERIAL BLOOD GAS pH 7.522 (7.350-7.450)
[2016-12-19 05:31] LABS: ARTERIAL BLOOD GAS ALLEN TEST NORMAL; ARTERIAL BLOOD GAS ART SITE LEFT BRACHIAL; ARTERIAL DRAW? YES
[2016-12-19 05:32] LABS: ARTERIAL BLOOD GAS VENT MODE AC
[2016-12-19 05:38] LABS: BASOPHIL% 0.1 % (0-2.5); HEMATOCRIT 27.2 % (35.0-45.0); HEMOGLOBIN 9.1 gm/dL (12.0-16.0); LYMPHOCYTE# 0.8 X10e3 (1.0-3.5); MEAN CELL VOLUME 87.6 FL (83-96); MEAN CORPUSCULAR HEMOGLOBIN 29.4 PG (28-34); MEAN CORPUSCULAR HGB CONC 33.6 g/dL (30-36); MEAN PLATELET VOLUME 8.5 FL (6.5-11.5); MONOCYTE# 0.4 X10e3 (0-1.0); MONOCYTE% 3.9 % (3.0-12.0); NEUTROPHIL# 10.1 X10e3 (1.5-7.1); PLATELET COUNT 201 X10e3 (140-420); RED BLOOD COUNT 3.11 X10e (3.90-5.30); RED CELL DISTRIBUTION WIDTH 13.8 % (11.0-15.5); WHITE BLOOD COUNT 11.4 X10e3 (4.0-10.5)
[2016-12-19 05:54] LABS: DIFF IND NO
[2016-12-19 06:17] LABS: BUN/CREATININE RATIO 28.75; CALCIUM SERUM 8.3 mg/dL (8.4-10.2); CREATININE SERUM 0.8 mg/dL (0.6-1.4); PHOSPHOROUS 2.7 mg/dL (2.5-4.6); POTASSIUM 3.4 mmol/L (3.5-5.1)
[2016-12-19 12:39] LABS: ARTERIAL BLD GAS O2 SATURATION 97.1 % (90.0-100.0); ARTERIAL BLOOD GAS CARBOXY HB 0.6 %sat (0.0-9.0); ARTERIAL BLOOD GAS HCO3 31.9 mmol/L; ARTERIAL BLOOD GAS MET HB 0.7 %sat (0.0-2.0); ARTERIAL BLOOD GAS PCO2 45.3 mmHg (35.0-45.0); ARTERIAL BLOOD GAS pH 7.457 (7.350-7.450)
[2016-12-19 12:40] LABS: ARTERIAL DRAW? YES
[2016-12-19 12:41] LABS: ARTERIAL BLOOD GAS ART SITE RIGHT RADIAL; ARTERIAL BLOOD GAS DELIVERY VENT; ARTERIAL BLOOD GAS VENT MODE CPAP
[2016-12-20 04:12] LABS: BASOPHIL% 0.1 % (0-2.5); HEMATOCRIT 27.9 % (35.0-45.0); HEMOGLOBIN 9.4 gm/dL (12.0-16.0); LYMPHOCYTE# 0.7 X10e3 (1.0-3.5); LYMPHOCYTE% 5.4 % (17.0-45.0); MEAN CELL VOLUME 89.1 FL (83-96); MEAN CORPUSCULAR HGB CONC 33.6 g/dL (30-36); MEAN PLATELET VOLUME 8.5 FL (6.5-11.5); MONOCYTE# 0.8 X10e3 (0-1.0); MONOCYTE% 5.9 % (3.0-12.0); NEUTROPHIL# 11.4 X10e3 (1.5-7.1); NEUTROPHIL% 88.6 % (40-75); PLATELET COUNT 259 X10e3 (140-420); RED BLOOD COUNT 3.13 X10e (3.90-5.30); RED CELL DISTRIBUTION WIDTH 13.5 % (11.0-15.5); WHITE BLOOD COUNT 12.8 X10e3 (4.0-10.5)
[2016-12-20 04:14] LABS: DIFF IND NO
[2016-12-20 04:34] LABS: BUN/CREATININE RATIO 36.66; CALCIUM SERUM 8.5 mg/dL (8.4-10.2); CREATININE SERUM 0.9 mg/dL (0.6-1.4); GLOM FILT RATE Estimated 85.9 mL/min (>60); POTASSIUM 3.8 mmol/L (3.5-5.1)
[2016-12-20 04:49] LABS: ARTERIAL BLOOD GAS CARBOXY HB 1.2 %sat (0.0-9.0); ARTERIAL BLOOD GAS HCO3 37.9 mmol/L; ARTERIAL BLOOD GAS MET HB 0.7 %sat (0.0-2.0); ARTERIAL BLOOD GAS pH 7.475 (7.350-7.450)
[2016-12-20 05:07] LABS: ARTERIAL BLOOD GAS ALLEN TEST NORMAL; ARTERIAL BLOOD GAS ART SITE RIGHT BRACHIAL; ARTERIAL BLOOD GAS DELIVERY OXYMIZER; ARTERIAL BLOOD GAS PCO2 51.5 mmHg (35.0-45.0); ARTERIAL BLOOD GAS PO2 58.5 mmHg (80.0-100); ARTERIAL DRAW? YES
[2016-12-21 05:48] LABS: BASOPHIL% 0.1 % (0-2.5); HEMATOCRIT 27.3 % (35.0-45.0); LYMPHOCYTE# 1.3 X10e3 (1.0-3.5); LYMPHOCYTE% 11.2 % (17.0-45.0); MEAN CELL VOLUME 88.9 FL (83-96); MEAN CORPUSCULAR HEMOGLOBIN 29.2 PG (28-34); MEAN CORPUSCULAR HGB CONC 32.8 g/dL (30-36); MEAN PLATELET VOLUME 8.7 FL (6.5-11.5); MONOCYTE# 0.8 X10e3 (0-1.0); MONOCYTE% 7.4 % (3.0-12.0); NEUTROPHIL# 9.1 X10e3 (1.5-7.1); NEUTROPHIL% 81.3 % (40-75); PLATELET COUNT 253 X10e3 (140-420); RED BLOOD COUNT 3.07 X10e (3.90-5.30); RED CELL DISTRIBUTION WIDTH 13.1 % (11.0-15.5); WHITE BLOOD COUNT 11.2 X10e3 (4.0-10.5)
[2016-12-21 06:01] LABS: DIFF IND NO
[2016-12-21 06:48] LABS: CALCIUM SERUM 8.6 mg/dL (8.4-10.2); CREATININE SERUM 0.6 mg/dL (0.6-1.4); GLOM FILT RATE Estimated 122.3 mL/min (>60); POTASSIUM 4.1 mmol/L (3.5-5.1)
[2016-12-21 09:51] LABS: HA AB IGM (HEPPAN) Nonreactive (()); HB CORE AB IGM (HEPPAN) Nonreactive (Nonreactive); HB S AG (HEPPAN) Nonreactive (Nonreactive); HEP C AB (HEPPAN) Reactive (Nonreactive)
[2016-12-23 06:32] LABS: CALCIUM SERUM 8.6 mg/dL (8.4-10.2); CREATININE SERUM 0.8 mg/dL (0.6-1.4)
[2016-12-24 05:13] LABS: HEMATOCRIT 27.1 % (35.0-45.0); HEMOGLOBIN 9.2 gm/dL (12.0-16.0); MEAN CELL VOLUME 86.8 FL (83-96); MEAN CORPUSCULAR HEMOGLOBIN 29.6 PG (28-34); MEAN CORPUSCULAR HGB CONC 34.1 g/dL (30-36); MEAN PLATELET VOLUME 8.2 FL (6.5-11.5); RED BLOOD COUNT 3.13 X10e (3.90-5.30); RED CELL DISTRIBUTION WIDTH 13.4 % (11.0-15.5); WHITE BLOOD COUNT 12.3 X10e3 (4.0-10.5)
[2016-12-24 06:08] LABS: CALCIUM SERUM 8.5 mg/dL (8.4-10.2); CREATININE SERUM 0.8 mg/dL (0.6-1.4); POTASSIUM 3.7 mmol/L (3.5-5.1)
[2016-12-25] MEDS ORDERED: CELEXA20 MG PO (10:17)
[2016-12-25] MEDS ORDERED: LEVEMIR FL100 UNIT/1 SUBQ (10:18)
[2016-12-25] MEDS ORDERED: NOVOLOG FL100 UNIT/1 SUBQ (10:19)
[2016-12-25] MEDS ORDERED: LEVAQUIN750 M1 PO (10:19)
== END 2016-12-25 12:56 | disposition home or self-care (01) | DRG 208 ==
LOC: CICCU2 06:10 → C2A 12-21 13:40
PROVIDERS: Family Medicine; Internal Medicine; Internal Medicine Pulmonary Disease
PROC: 5A1945Z Respiratory Ventilation, 24-96 Consecutive Hours (ICD-10-PCS; principal; 2016-12-17)
PROC: 0W9930Z Drainage of Right Pleural Cavity with Drainage Device, Percutaneous Approach (ICD-10-PCS; 2016-12-17)
PROC: 05HM33Z Insertion of Infusion Device into Right Internal Jugular Vein, Percutaneous Approach (ICD-10-PCS; 2016-12-17)
PROC: B24BYZZ Ultrasonography of Heart with Aorta using Other Contrast (ICD-10-PCS; 2016-12-17)
PROC: 0DJ08ZZ Inspection of Upper Intestinal Tract, Via Natural or Artificial Opening Endoscopic (ICD-10-PCS; 2016-12-24)
DX: J96.01 Acute respiratory failure with hypoxia (principal); R65.21 Severe sepsis with septic shock; J69.0 Pneumonitis due to inhalation of food and vomit; A41.9 Sepsis, unspecified organism; J15.6 Pneumonia due to other Gram-negative bacteria; S27.0XXA Traumatic pneumothorax, initial encounter; G89.29 Other chronic pain; Z79.4 Long term (current) use of insulin; D64.9 Anemia, unspecified; B19.20 Unspecified viral hepatitis C without hepatic coma; R11.2 Nausea with vomiting, unspecified; I10 Essential (primary) hypertension; F17.210 Nicotine dependence, cigarettes, uncomplicated; E11.65 Type 2 diabetes mellitus with hyperglycemia; F41.9 Anxiety disorder, unspecified; F32.9 Major depressive disorder, single episode, unspecified
CPT/HCPCS: 36600; 71010; 71020; 74000; 80048; 80053; 80074; 80202; 80307; 82803; 82947; 83036; 83605; 83735; 83880; 84100; 84132; 84484; 84703; 85025; 85027; 85379; 85610; 85730; 86850; 86900; 86901; 87040; 87070; 87205; 87449; 87522; 87804; 87806; 92610; 93306; 93970; 94002; 94003; 94640; 94760; 97110; 97116; 97162; 97165; 97530; 97535; 99406; C9113; G8978-GP; G8979-GP; G8987-GO; G8988-GO; G8989-GO; G8996-GN; G8997-GN; G8998-GN; J0456; J1120; J1650; J1720; J1815; J2250; J2370; J2543; J2550; J2765; J2920; J3010; J3370